=== PATIENT | female | born 1975 | race Two or more races ===

== ENCOUNTER 2021-03-30 16:45 | Emergency (ER) | payer SELFPAY ==
[2021-03-30] MEDS ORDERED: Sodium Chloride 0.9% 1,000 ML IV ONE (20:50)
--- NOTE | 2021-03-30 20:50 | EDM.PDOC ---
<Buddy Oro - Last Filed: 03/30/21 23:32> ED HPI GENERAL MEDICAL PROBLEM - General Chief Complaint: Gastrointestinal Problem Stated Complaint: DIARHEAA Time Seen by Provider: 03/30/21 20:47 - Related Data Allergies Allergy/AdvReac Type Severity Reaction Status Date / Time No Known Allergies Allergy Verified 03/30/21 17:14 Home Meds: Home Meds . [No Known Home Meds] 03/30/21 [History] Course - Re-Assessments/Exams Free Text/Narrative Re-Assessment/Exam: 03/30/21 23:32 Patient found to be pending labs and stool studies. Patient is not able to give a stool sample here we will send patient home with a order to return with stool sample. Patient will be discharged home. Departure - Departure Time of Disposition: 23:33 Disposition: Home, Self-Care 01 Condition: Good Clinical Impression: Diarrhea due to COVID-19 - Discharge Information *PRESCRIPTION DRUG MONITORING PROGRAM REVIEWED*: Not Applicable *COPY OF PRESCRIPTION DRUG MONITORING REPORT IN PATIENT RAUL: Not Applicable Instructions: COVID-19: How to Protect Yourself and Others - [facility] Referrals: PCP,None [Primary Care Provider] - Forms: ED Department Discharge Additional Instructions: The following information is given to patients seen in the emergency department who are being discharged to home. This information is to outline your options for follow-up care. We provide all patients seen in our emergency department with a follow-up referral. The need for follow-up, as well as the timing and circumstances, are variable depending upon the specifics of your emergency department visit. If you don't have a primary care physician on staff, we will provide you with a referral. We always advise you to contact your personal physician following an emergency department visit to inform them of the circumstance of the visit and for follow-up with them and/or the need for any referrals to a consulting specialist. The emergency department will also refer you to a specialist when appropriate. This referral assures that you have the opportunity for follow-up care with a specialist. All of these measure are taken in an effort to provide you with optimal care, which includes your follow-up. Under all circumstances we always encourage you to contact your private physician who remains a resource for coordinating your care. When calling for follow-up care, please make the office aware that this follow-up is from your recent emergency room visit. If for any reason you are refused follow-up, please contact the [facility] Emergency Department at and asked to speak to the emergency department charge nurse. Please follow up with your primary care physician. If you do not have a primary care physician, see below: [facility] [address] [place] [id number] My [facility] [address] [place], [place] [id number] You are seen today for symptoms of diarrhea and fatigue. We reviewed your lab work and we also understand some stool studies off but you were not able to get a stool sample here in the ED. We will send you home with a prescription and you can return and send a stool study when you have them. Recommend continue to stay hydrated and follow-up to primary care physician. <Eliel Davila E - Last Filed: 03/31/21 10:20> ED HPI GENERAL MEDICAL PROBLEM - General Source of Information: Reports: Patient History Limitations: Reports: No Limitations - History of Present Illness INITIAL COMMENTS - FREE TEXT/NARRATIVE: HISTORY AND PHYSICAL: History of present illness: Patient is a 45-year-old female who presents to the emergency room with complaints of nausea, vomiting, fatigue, cough, body aches (low back mainly) and diarrhea over the past 4 to 5 days. She states last week her tested p ositive for COVID-19, she also tested positive at the walk-in clinic (tested last week, received results yesterday). She is concerned she may be dehydrated as she has not been able to keep any fluids down. She also has some chest pressure which she states is worse with coughing and physical activity. Patient denies any fever, chills, headache, change in vision, syncope or near syncope. Denies any shortness of breath, hemoptysis or cough. Denies any abdominal pain, constipation or dysuria. Has not noted any blood in urine or stool. Review of systems: As per history of present illness and below otherwise all systems reviewed and negative. Past medical history: As per history of present illness and as reviewed below otherwise noncontributory. Surgical history: As per history of present illness and as reviewed below otherwise noncontributory. Social history: See social history for further information Family history: As per history of present illness and as reviewed below otherwise noncontributory. Physical exam: General: Well developed and well nourished 45-year-old female. Alert and orientated x 3. Nontoxic in appearance and in no acute distress. Vital signs are stable and have been reviewed by me. Nursing notes were reviewed. HEENT: Atraumatic, normocephalic, pupils equal and reactive bilaterally, negative for conjunctival pallor or scleral icterus, mucous membranes dry, trachea midline. No drooling or trismus noted. No meningeal signs. No hot potato voice noted. Lungs: Slightly diminished to bases bilaterally. No wheezes, rales, or rhonchi. Chest nontender. Normal work of breathing, no accessory muscles used. Dry nonproductive cough is noted. Heart: S1S2, regular rate and rhythm without overt murmur, gallops, or rubs. No JVD. No peripheral edema Abdomen: Soft, nondistended, nontender. Normoactive bowel sounds. Negative for masses or costovertebral tenderness. Skin: Intact, warm, dry. No lesions or rashes noted. Hematologic: No petechiae or purpra. Mucosa appropriate color and normal nail bed color and refill. Extremities: Atraumatic, moves all extremities per self without difficulty or deficits, negative for cords or calf pain. Neurovascular unremarkable. Neuro: Awake, alert, oriented. Cranial nerves II through XII unremarkable. Cerebellum unremarkable. Motor and sensory unremarkable throughout. Exam nonfocal. Psychiatric: Mood and affect are appropriate. Normal thought process. Answering questions appropriately. Please note that the patient was seen and evaluated during the 2019 SARS-CoV-2 novel coronavirus pandemic period. Community viral transmission is ongoing at time of this encounter and the emergency department is operating under pandemic response procedures. Medical Decision Making: Patient is a 45-year-old female who tested positive for COVID-19 1 week ago. She has had nausea, vomiting, diarrhea, low back pain, chest pressure and fatigue over the past 4 to 5 days. She is concerned she may be dehydrated as she has not been able to keep any fluids down. Patient's physical exam is unremarkable. We will do basic lab work along with cardiac enzymes, EKG and chest x-ray. Will give IV fluids as she does appear clinically dehydrated. She declines wanting any Toradol or Zofran at this time. Encouraged her to inform us if she can give a stool. Diagnostics are pending. Report given to Dr Oro. He will assume care of this patient and disposition/treat appropriately. Diagnostics: Stool studies, CBC, CMP, troponin, EKG, chest x-ray, [employer]: IV fluid Impression: Dehydration COVID-19 Definitive disposition and diagnosis as appropriate pending reevaluation and review of above. head, lower back Pain Score (Numeric/FACES): 10 Past Medical History - Past Health History Medical/Surgical History: Denies Medical/Surgical History Neurological History: Reports: Other (See Below) Other Neuro History: [place] Palsy - Infectious Disease History Infectious Disease History: Reports: Novel Coronavirus Social & Family History - Family History Family Medical History: No Pertinent Family History - Tobacco Use Tobacco Use Status *Q: Never Tobacco User - Recreational Drug Use Recreational Drug Use: No ED ROS GENERAL - Review of Systems Review Of Systems: Comprehensive ROS is negative, except as noted in HPI. ED EXAM, GI/ABD - Physical Exam Exam: See Below (See dictation) Course - Vital Signs Last Recorded V/S: Last Vital Signs Temp 97.5 F 03/30/21 17:11 Pulse 83 03/30/21 17:11 Resp 18 03/30/21 17:11 BP 105/63 03/30/21 17:11 Pulse Ox 97 03/30/21 17:11 - Orders/Labs/Meds Labs: Laboratory Tests 03/30/21 03/30/21 03/30/21 Range/Units 21:05 21:05 22:30 WBC 3.12 L (4.0-11.0) K/uL RBC 4.63 (4.30-5.90) M/uL Hgb 13.7 (12.0-16.0) g/dL Hct 40.7 (36.0-46.0) % MCV 87.9 (80.0-98.0) fL MCH 29.6 (27.0-32.0) pg MCHC 33.7 (31.0-37.0) g/dL RDW Std Deviation 40.9 (28.0-62.0) fl RDW Coeff of [place] 13 (11.0-15.0) % Plt Count 244 (150-400) K/uL MPV 9.00 (7.40-12.00) fL Neut % (Auto) 25.6 L (48.0-80.0) % Lymph % (Auto) 56.1 H (16.0-40.0) % [place] % (Auto) 15.4 H (0.0-15.0) % Eos % (Auto) 2.6 (0.0-7.0) % Baso % (Auto) 0.3 (0.0-1.5) % Neut # (Auto) 0.8 L (1.4-5.7) K/uL Lymph # (Auto) 1.8 (0.6-2.4) K/uL [place] # (Auto) 0.5 (0.0-0.8) K/uL Eos # (Auto) 0.1 (0.0-0.7) K/uL Baso # (Auto) 0.0 (0.0-0.1) K/uL Nucleated RBC % 0.0 /100WBC Nucleated RBCs # 0 K/uL Sodium 140 (136-145) mmol/L Potassium 3.9 (3.5-5.1) mmol/L Chloride 104 (98-107) mmol/L Carbon Dioxide 28.8 (21.0-32.0) mmol/L BUN 6 L (7.0-18.0) mg/dL Creatinine 0.7 (0.6-1.0) mg/dL Est Cr Clr Drug Dosing 97.01 mL/min Estimated GFR (MDRD) > 60.0 ml/min Glucose 122 H (74-106) mg/dL Calcium 8.8 (8.5-10.1) mg/dL Total Bilirubin 0.2 (0.2-1.0) mg/dL AST 20 (15-37) IU/L ALT 29 (14-63) IU/L Alkaline Phosphatase 61 (46-116) U/L Creatine Kinase 18 L (26-308) U/L Troponin I < 0.050 (0.000-0.056) ng/mL Total Protein 7.3 (6.4-8.2) g/dL Albumin 3.7 (3.4-5.0) g/dL Globulin 3.6 (2.6-4.0) g/dL Albumin/Globulin Ratio 1.0 (0.9-1.6) Urine Color YELLOW Urine Appearance CLEAR Urine pH 6.5 (5.0-8.0) Ur Specific [place] 1.020 (1.001-1.035) Urine Protein NEGATIVE (NEGATIVE) mg/dL Urine Glucose (UA) NEGATIVE (NEGATIVE) mg/dL Urine Ketones NEGATIVE (NEGATIVE) mg/dL Urine Occult Blood NEGATIVE (NEGATIVE) Urine Nitrite NEGATIVE (NEGATIVE) Urine Bilirubin NEGATIVE (NEGATIVE) Urine Urobilinogen 0.2 (<2.0) EU/dL Ur Leukocyte Esterase NEGATIVE (NEGATIVE) Meds: Medications Discontinued Medications Generic Name Dose Route Start Last Admin Trade Name Freq PRN Reason Stop Dose Admin Sodium Chloride 1,000 mls @ 999 mls/hr 03/30/21 20:50 03/30/21 23:00 Normal Saline IV 03/30/21 21:50 999 mls/hr STAT ONE Administration
[2021-03-30 21:44] LABS: BLOOD UREA NITROGEN,BUN 6 mg/dL (7.0-18.0); CARBON DIOXIDE,CO2 28.8 mmol/L (21.0-32.0); CHLORIDE,CL 104 mmol/L (98-107); GLUCOSE RANDOM 122 mg/dL (74-106); POTASSIUM,K 3.9 mmol/L (3.5-5.1); SODIUM,NA 140 mmol/L (136-145)
--- NOTE | 2021-03-30 22:07 | CR ---
INDICATION: Shortness of breath. TECHNIQUE: Chest 1 view. COMPARISON: None. FINDINGS: Cardiovascular and mediastinum: Heart size and vasculature are normal in caliber and appearance. Lungs and pleural spaces: Ill-defined infiltrates are present in the lower lungs bilaterally. No effusions and no pneumothorax. Bones and soft tissues: No significant findings. IMPRESSION: Bilateral lower lobe pneumonia suspected. Findings are suspicious for COVID pneumonitis. Dictated by Zackery Mosher MD @ 03/30/2021 10:05:38 PM (Electronically Signed)
== END 2021-03-30 23:50 | disposition home or self-care (01) ==
LOC: MW.ED 16:45
DX: U07.1 COVID-19 (principal); E86.0 Dehydration; R19.7 Diarrhea, unspecified
CPT/HCPCS: 36415; 71045; 80053; 81003; 82550; 84484; 85025; 99284; J7030